=== PATIENT | male | born 1970 | race Caucasian/White ===

== ENCOUNTER 2016-12-25 05:22 | Emergency (ER) | payer OTHER ==
[2016-12-25 05:30] VITALS: BMI 24.3
[2016-12-25 05:35] VITALS: BP 136/90; PULSE 78; RESP 16; TEMP 97.8; O2SAT 100
--- NOTE | 2016-12-25 05:56 | ED PDOC ---
Arrival/HPI - General Time Seen by Provider: 12/25/16 05:39 Historian: Patient - History of Present Illness Narrative History of Present Illness (Text): 12/25/16 05:53 Jerri Fong is a 46 year old male who presents to the ED complaining of a foreign body sensation to his left upper eyelid tonight. Patient states possibly something from the air entered his left eye but he is unsure. Patient denies any vision changes/disturbances, headache, dizziness, or any other complaints. Time/Duration: Other (tonight) Symptom Onset: Gradual Symptom Course: Unchanged Severity Level: Mild Activities at Onset: Rest, Light Context: Home Past Medical History - Provider Review Nursing Documentation Reviewed: Yes - Musculoskeletal/Rheumatological Hx Back Pain: Yes Other/Comment: Sciatica - Psychiatric Hx Substance Use: No - Anesthesia Hx Anesthesia: No Family/Social History - Physician Review Nursing Documentation Reviewed: Yes Family/Social History: No Known Family HX Smoking Status: Smoker Currrent Status Unknown Hx Alcohol Use: No Hx Substance Use: No Allergies/Home Meds Allergies/Adverse Reactions: Allergies No Known Allergies Allergy (Verified 12/25/16 05:30) Review of Systems - Physician Review All systems were reviewed & negative as marked: Yes - Review of Systems Constitutional: Normal. absent: Fevers Eyes: Other (+foreign body sensation to left upper eyelid) ENT: Normal Respiratory: Normal. absent: SOB, Cough Cardiovascular: Normal. absent: Chest Pain Gastrointestinal: Normal. absent: Abdominal Pain, Diarrhea, Nausea, Vomiting Genitourinary Male: Normal. absent: Dysuria, Frequency, Hematuria Musculoskeletal: Normal. absent: Back Pain, Neck Pain Skin: Normal. absent: Rash Neurological: Normal. absent: Headache, Dizziness Endocrine: Normal Hemo/Lymphatic: Normal Psychiatric: Normal Physical Exam Vital Signs Reviewed: Yes Vital Signs Temp Pulse Resp BP Pulse Ox 12/25/16 05:34 97.8 F 78 16 136/90 100 Temperature: Afebrile Blood Pressure: Normal Pulse: Regular Respiratory Rate: Normal Appearance: Positive for: Well-Appearing, Non-Toxic, Comfortable Pain Distress: None Mental Status: Positive for: Alert and Oriented X 3 - Systems Exam Head: Present: Atraumatic, Normocephalic Pupils: Present: PERRL. No: Other (No foreign body noted, no corneal abrasion, no fluoroscein uptake) Extroacular Muscles: Present: EOMI Conjunctiva: Present: Normal Mouth: Present: Moist Mucous Membranes Neck: Present: Normal Range of Motion Neurological: Present: GCS=15, CN II-XII Intact, Speech Normal Skin: Present: Warm, Dry, Normal Color. No: Rashes Psychiatric: Present: Alert, Oriented x 3, Normal Insight, Normal Concentration Medical Decision Making ED Course and Treatment: 12/25/16 05:53 Impression: 46 year old male complaining of left upper eyelid foreign body sensation tonight. Plan: -- Reassess and disposition Progress Notes: Both eyelids were everted and there was no evidence of foreign body on gross exam. Tetracaine and Fluorescein dye were applied. No fluorescein uptake and no evidence of corneal abrasion noted. Pt tolerated procedure well. Eye flushed with normal saline. - Medication Orders Current Medication Orders: Discontinued Medications Tobramycin Sulfate (Tobrex 0.3% Ophth Oint) 0 appl OS ONCE ONE Stop: 12/25/16 06:54 Last Admin: 12/25/16 07:06 Dose: 0.5 INCH - Scribe Statement The provider has reviewed the documentation as recorded by the Nikolas Kaye Provider Attestation: All medical record entries made by the Curtisibjazzy were at my direction and personally dictated by me. I have reviewed the chart and agree that the record accurately reflects my personal performance of the history, physical exam, medical decision making, and the department course for this patient. I have also personally directed, reviewed, and agree with the discharge instructions and disposition. Disposition/Present on Arrival - Present on Arrival Any Indicators Present on Arrival: No History of DVT/PE: No History of Uncontrolled Diabetes: No Urinary Catheter: No History of Decub. Ulcer: No History Surgical Site Infection Following: None - Disposition Have Diagnosis and Disposition been Completed?: Yes Diagnosis: Corneal irritation of left eye Disposition: HOME/ ROUTINE Disposition Time: 06:56 Patient Plan: Discharge Condition: STABLE Additional Instructions: Place eye meds to affected eye as prescribed/follow up with the opthalmologist triston Thomas Prescriptions: Tobramycin 0.3% [Tobrex 0.3% Ophth Soln] 2 drop OS QID #1 bottle Referrals: Kulwinder Madera MD [Staff Provider] - Follow up with primary
[2016-12-25] MEDS ORDERED: Tobramycin 0.3% OPH OINT OS ONE (06:53)
== END 2016-12-25 07:15 | disposition home or self-care (01) ==
LOC: ED 05:22
DX: H57.8 Other specified disorders of eye and adnexa (principal)

== ENCOUNTER 2017-04-06 10:34 | Emergency (ER) | payer OTHER ==
[2017-04-06 10:34] VITALS: BMI 24.3
[2017-04-06 10:57] VITALS: BP 117/85; PULSE 72; RESP 18; TEMP 98.3; O2SAT 97
[2017-04-06] MEDS ORDERED: Ciprofloxacin/Dexamethasone OTIC SUSP AS STA (11:01)
--- NOTE | 2017-04-06 11:04 | ED PDOC ---
Arrival/HPI - General Chief Complaint: ENT Problem Time Seen by Provider: 04/06/17 11:00 Historian: Patient - History of Present Illness Narrative History of Present Illness (Text): 04/06/17 11:18 46yo male with no PMHx present with complaint of right ear pain x 3days. Notes that he was recently treated with Neomycin otic ear drop for left ear infection. States the left ear resolved and he started having pain on the right. Notes that he applied the left over Neomycin on his right ear without relieve. Took Aleve 200mg yesterday without relieve. Denies hearing loss, trauma , discharge from ear, any other complaint. Past Medical History - Provider Review Nursing Documentation Reviewed: Yes - Infectious Disease Hx of Infectious Diseases: None - Musculoskeletal/Rheumatological Hx Back Pain: Yes Other/Comment: Sciatica - Psychiatric Hx Substance Use: No - Anesthesia Hx Anesthesia: No Family/Social History - Physician Review Nursing Documentation Reviewed: Yes Family/Social History: Unknown Family HX Smoking Status: Smoker Currrent Status Unknown Hx Alcohol Use: No Hx Substance Use: No Allergies/Home Meds Allergies/Adverse Reactions: Allergies No Known Allergies Allergy (Verified 04/06/17 10:57) Home Medications: Home Meds Medication Instructions Recorded Confirmed [id number] Ear Susp 4 drop Q12 04/06/17 04/06/17 Review of Systems - Physician Review All systems were reviewed & negative as marked: Yes - Review of Systems Constitutional: Normal Eyes: Normal ENT: Other (Right ear pain) Respiratory: Normal Cardiovascular: Normal Gastrointestinal: Normal Genitourinary Male: Normal Musculoskeletal: Normal Skin: Normal Neurological: Normal Endocrine: Normal Hemo/Lymphatic: Normal Psychiatric: Normal Physical Exam Vital Signs Reviewed: Yes Vital Signs Temp Pulse Resp BP Pulse Ox 04/06/17 10:55 98.3 F 72 18 117/85 97 Temperature: Afebrile Blood Pressure: Normal Pulse: Regular Respiratory Rate: Normal Appearance: Positive for: Well-Appearing, Non-Toxic, Comfortable Pain Distress: None Mental Status: Positive for: Alert and Oriented X 3 - Systems Exam Head: Present: Atraumatic, Normocephalic Pupils: Present: PERRL Extroacular Muscles: Present: EOMI Conjunctiva: Present: Normal Ears: Present: NORMAL TM, Normal Canal, Other (Tenderness on palpation of the right tragus and posterior right ear. Pain with manipulation of the right pinna) . No: Erythema, TM Bulging, Fluid, TM Perf Mouth: Present: Moist Mucous Membranes Neck: Present: Normal Range of Motion Respiratory/Chest: Present: Clear to Auscultation, Good Air Exchange. No: Respiratory Distress, Accessory Muscle Use Cardiovascular: Present: Regular Rate and Rhythm, Normal S1, S2. No: Murmurs Abdomen: Present: Normal Bowel Sounds. No: Tenderness, Distention, Peritoneal Signs Back: Present: Normal Inspection Upper Extremity: Present: Normal Inspection. No: Cyanosis, Edema Lower Extremity: Present: Normal Inspection. No: Edema Neurological: Present: GCS=15, CN II-XII Intact, Speech Normal Skin: Present: Warm, Dry, Normal Color. No: Rashes Psychiatric: Present: Alert, Oriented x 3, Normal Insight, Normal Concentration Medical Decision Making ED Course and Treatment: 04/06/17 11:21 Kimberly was physically in pain in ED. He was treated with Tramadol and Cipro for otitis externa of his right ear and referred to ENT. Advised TRT ED for new or worsening symptoms. - Medication Orders Current Medication Orders: Discontinued Medications Ciprofloxacin/Dexamethasone (Ciprodex Otic) 4 drop BID STA Stop: 04/06/17 11:02 Tramadol HCl (Ultram) 50 mg PO STAT STA Stop: 04/06/17 11:02 Disposition/Present on Arrival - Present on Arrival Any Indicators Present on Arrival: No History of DVT/PE: No History of Uncontrolled Diabetes: No Urinary Catheter: No History of Decub. Ulcer: No History Surgical Site Infection Following: None - Disposition Have Diagnosis and Disposition been Completed?: Yes Diagnosis: Acute otitis externa Disposition: HOME/ ROUTINE Disposition Time: 11:10 Patient Plan: Discharge Patient Problems: Current Active Problems Problem Status Onset Acute otitis externa Acute Condition: STABLE Discharge Instructions (ExitCare): Otitis Externa (ED) Additional Instructions: Follow up with your Doctor/ENT Return to ED for any new or worsening symptoms Prescriptions: Ibuprofen [Motrin Tab] 600 mg PO Q6 #20 tab Referrals: Obed Pathak DO [Staff Provider] - Follow up with primary
== END 2017-04-06 11:22 | disposition home or self-care (01) ==
LOC: ED 10:34
DX: H60.501 Unspecified acute noninfective otitis externa, right ear (principal)